=== PATIENT | male | born 1970 | race Caucasian/White ===

== ENCOUNTER 2018-08-11 13:56 | Inpatient (IN) ==
[2018-08-11] MEDS ORDERED: HydrOXYzine PAMOATE 25 MG CAPSULE PO PRN (14:45)
[2018-08-11] MEDS ORDERED: METHOCARBAMOL 500 MG TABLET PO PRN (14:45)
[2018-08-11] MEDS ORDERED: DICYCLOMINE 10 MG CAPSULE PO PRN (14:45)
[2018-08-11] MEDS ORDERED: ACETAMINOPHEN 325 MG TABLET PO PRN (14:46)
[2018-08-11] MEDS ORDERED: ONDANSETRON 4 MG/2 ML VIAL IV PRN (14:46)
[2018-08-11] MEDS: chlordiazePOXIDE 25 MG CAPSULE PO SCH ×2 (15:20→20:15)
[2018-08-11] MEDS: LORazepam 1 MG TABLET PO SCH ×3 (15:20→22:18)
[2018-08-11] MEDS ORDERED: DEXTROSE 50% 25 GM/50 ML SYRINGE IV PRN (15:59)
[2018-08-11] MEDS ORDERED: GLUCAGON 1 MG VIAL IM PRN (15:59)
[2018-08-11] MEDS ORDERED: THIAMINE INJ 100 MG, FOLIC ACID INJ 1 MG, MULTIVITAMIN INJ 10 ML in SODIUM CHLORIDE 0.9... IV ONE (16:00)
[2018-08-11] MEDS: SODIUM CHLORIDE 0.9% 1,000 ML IV SCH (16:16)
[2018-08-11 16:30] LABS: Folate 9.5 NG/ML (5.4-24.0)
[2018-08-11] MEDS: LORazepam 2 MG/1 ML VIAL IV PRN ×2 (17:10→22:16)
[2018-08-11] MEDS: INSULIN LISPRO 100 UNIT/ML SUBCUT SCH ×2 (17:11→20:15)
[2018-08-11 18:30] LABS: Barbiturates Screen,Urine Negative (Negative); Benzodiazepines Screen,Urine Positive (Negative); Cannabinoid Screen,Urine Negative (Negative); Opiate Screen,Urine Negative (Negative); Phencyclidine Screen,Urine Negative (Negative)
[2018-08-11] MEDS: DOCUSATE SODIUM 100 MG CAPSULE PO SCH (20:15)
[2018-08-12] MEDS: LORazepam 1 MG TABLET PO SCH ×5 (03:23→20:08)
[2018-08-12] MEDS: chlordiazePOXIDE 25 MG CAPSULE PO SCH ×4 (03:23→23:10)
[2018-08-12 05:36] LABS: Basophils % 0.5 % (0.0-0.8); Eosinophils # 0.1 10*3/uL (0.0-0.87); Eosinophils % 1.5 % (0.00-10.9); Hematocrit 40.2 VOL% (42.0-52.0); Hemoglobin 13.6 GM/DL (14.0-18.0); Immature Granulocytes % 0.3 %; Immature Granulocytes Absolute 0.02 #; Lymphocytes # 1.7 10*3/uL (1.4-4.0); Lymphocytes % 29.6 % (21.2-54.2); Mean Corpuscular HGB Conc 33.8 GM/DL (32-36); Mean Corpuscular Hemoglobin 34 PG (27-34); Mean Corpuscular Volume 99.3 FL (87-102); Mean Platelet Volume 11.1 FL (9.6-12.0); Monocytes # 0.5 10*3/uL (0.11-0.8); Neutrophils # 3.4 10*3/uL (1.4-7.4); Neutrophils % 59.1 % (38.7-73.9); Platelet Count 134 T/CUMM (130-400); Red Blood Count 4.05 MC/CUMM (3.8-5.5); Red Cell Distribution Width 12.6 % (9.3-17.3); White Blood Count 5.8 T/CUMM (4-12)
[2018-08-12 05:58] LABS: Albumin 3.3 G/DL (3.4-5.0); Calcium 8.2 MG/DL (8.5-10.1); Potassium 3.4 MMOL/L (3.5-5.1); Risk Ratio 6.71; VLDL CHOLESTEROL 26.4 MG/DL
[2018-08-12] MEDS: DOCUSATE SODIUM 100 MG CAPSULE PO SCH ×2 (09:09→20:08)
[2018-08-12] MEDS: INSULIN LISPRO 100 UNIT/ML SUBCUT SCH ×4 (09:09→21:01)
[2018-08-12] MEDS: PANTOPRAZOLE 40 MG TABLET PO SCH (09:09)
[2018-08-12] MEDS: SODIUM CHLORIDE 0.9% 1,000 ML IV SCH ×2 (09:12→21:05)
[2018-08-12] MEDS: LORazepam 2 MG/1 ML VIAL IV PRN ×3 (12:06→21:01)
[2018-08-13] MEDS: LORazepam 1 MG TABLET PO SCH ×4 (02:46→22:13)
[2018-08-13] MEDS: LORazepam 2 MG/1 ML VIAL IV PRN (03:27)
[2018-08-13 04:48] LABS: Basophils % 0.4 % (0.0-0.8); Eosinophils # 0.1 10*3/uL (0.0-0.87); Eosinophils % 2.8 % (0.00-10.9); Hematocrit 38.7 VOL% (42.0-52.0); Immature Granulocytes % 0.6 %; Immature Granulocytes Absolute 0.03 #; Lymphocytes # 1.2 10*3/uL (1.4-4.0); Lymphocytes % 23.3 % (21.2-54.2); Mean Corpuscular HGB Conc 33.6 GM/DL (32-36); Mean Corpuscular Hemoglobin 33 PG (27-34); Mean Corpuscular Volume 98.7 FL (87-102); Mean Platelet Volume 11.3 FL (9.6-12.0); Monocytes # 0.4 10*3/uL (0.11-0.8); Neutrophils # 3.3 10*3/uL (1.4-7.4); Neutrophils % 65.9 % (38.7-73.9); Platelet Count 110 T/CUMM (130-400); Red Blood Count 3.92 MC/CUMM (3.8-5.5)
[2018-08-13 04:59] LABS: Albumin 3.3 G/DL (3.4-5.0); Bilirubin,Total 1.2 MG/DL (0.2-1.0); Calcium 7.7 MG/DL (8.5-10.1); Osmolality,Calculated 277.8 MOS/KG (273-304); Potassium 3.6 MMOL/L (3.5-5.1); Total Protein 6.8 G/DL (6.4-8.3)
[2018-08-13] MEDS: SODIUM CHLORIDE 0.9% 1,000 ML IV SCH ×2 (05:24→14:02)
[2018-08-13] MEDS: chlordiazePOXIDE 25 MG CAPSULE PO SCH ×3 (06:21→22:12)
[2018-08-13 08:16] LABS: Hepatitis A Ab IgM Quant 0.22 Index; Hepatitis A Ab IgM Result Negative (Negative); Hepatitis B Core IgM Quant 0.12 Index; Hepatitis B Core IgM Result Negative (Negative); Hepatitis B Surface Ag Quant 0.66 Index; Hepatitis B Surface Ag Result Negative (Negative); Hepatitis C Virus Ab Quant 0.28 Index; Hepatitis C Virus Ab Result Negative (Negative)
[2018-08-13] MEDS: INSULIN LISPRO 100 UNIT/ML SUBCUT SCH ×4 (09:28→22:01)
[2018-08-13] MEDS: VERAPAMIL 120 MG TABLET PO SCH (09:35)
[2018-08-13] MEDS: DOCUSATE SODIUM 100 MG CAPSULE PO SCH ×2 (09:35→23:00)
[2018-08-13] MEDS: PANTOPRAZOLE 40 MG TABLET PO SCH (09:35)
[2018-08-13] MEDS: ESCITALOPRAM 10 MG TABLET PO SCH (09:36)
[2018-08-13] MEDS: metFORMIN 500 MG TABLET PO SCH (17:24)
[2018-08-14] MEDS: LORazepam 1 MG TABLET PO SCH (06:17)
[2018-08-14] MEDS: chlordiazePOXIDE 25 MG CAPSULE PO SCH (06:17)
[2018-08-14] MEDS: ESCITALOPRAM 10 MG TABLET PO SCH (08:36)
[2018-08-14] MEDS: metFORMIN 500 MG TABLET PO SCH (08:36)
[2018-08-14] MEDS: DOCUSATE SODIUM 100 MG CAPSULE PO SCH (08:36)
[2018-08-14] MEDS: VERAPAMIL 120 MG TABLET PO SCH (08:36)
[2018-08-14] MEDS: PANTOPRAZOLE 40 MG TABLET PO SCH (08:36)
[2018-08-14] MEDS: INSULIN LISPRO 100 UNIT/ML SUBCUT SCH (08:37)
[2018-08-14 12:10] VITALS: BP 117/59
== END 2018-08-14 12:30 | disposition home or self-care (01) | DRG 897 ==
LOC: N.4E 14:32 → SUATTDRO 14:32
PROVIDERS: ADMIT Internal Medicine; ATTEND Hospitalist